=== PATIENT | female | born 1945 | race Caucasian/White ===

== ENCOUNTER 2017-03-04 07:33 | Day surgery (SDC) | payer BC ==
[2017-02-25 11:55] LABS: HEMOGLOBIN 12.7 g/dL (12.0-16.0)
[2017-02-25 12:07] LABS: BUN (BLOOD UREA NITROGEN) 17 MG/DL (6-23); CHLORIDE, SERUM 103 MMOL/L (96-112); CO2 (CARBON DIOXIDE) 30 MMOL/L (24-34); CREATININE 1.05 MG/DL (0.55-1.02); GFR AFRICAN AMERICAN 62 ML/MIN (>=60); GFR NON AFRICAN AMERICAN 54 ML/MIN (>=60); GLUCOSE, SERUM 90 MG/DL (60-99); POTASSIUM, SERUM 3.8 MMOL/L (3.5-5.3); SODIUM, SERUM 142 MMOL/L (135-148)
--- NOTE | ~2017-03-04 | OP ---
Record Of Operation [facility] [address] [place]. [address] NAME: HAJA ESCOBAR : 47 STATUS : [facility]#: [id number] AGE: 71 ADM/REG DATE : 03/04/17 MR#: [id number] REPORT SERV DATE: 03/17/17 DICTATED BY: Candice WHITMORE DATE: 03/17/17 REPORT STATUS : Draft TRANSCRIBED BY: MULU DATE: 03/17/17 DATE OF PROCEDURE: 03/04/2017 PREOPERATIVE DIAGNOSES: 1. 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 2. Lesion of the right medial cheek, uncertain behavior. 3. Lesion of the left lateral cheek, uncertain behavior. 4. Lesion of the right distal nasal dorsum, uncertain behavior. POSTOPERATIVE DIAGNOSES: 1. 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 2. Right medial cheek lesion, epidermal inclusion cyst by frozen section. 3. Left lateral cheek lesion, sent for frozen section, no cancer seen, probable benign nevus. 4. Right distal nasal dorsum lesion, permanent path pending. PROCEDURE: 1. Incisional biopsy right medial cheek lesion with frozen section. 2. Excision of right medial cheek subcutaneous mass (probable epidermal inclusion cyst), with intermediate closure. 3. Excision of basal cell carcinoma of the nasal tip with frozen section. 4. Re-excision of nasal tip basal cell carcinoma, (margins with additional frozen section and dressing of the wound). 5. Shave excision distal nasal dorsum lesion (sent for permanent section). 6. Shave excision of left lateral cheek lesion with frozen section. 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 INDICATIONS: This 71-year-old has a biopsy-proven basal cell carcinoma of the nasal tip. This is at the very tip and center of the nose and this needs to be excised, and she understands the difficulty in reconstruction, and we discussed possibly and probably allowing this to heal by secondary intention. Direct closure and skin graft can be done at a later date if we have an undesirable result with secondary healing. The tip is too narrow for direct closure in my opinion. She also has a lesion of her right medial cheek that is suspicious for basal cell. There is a lesion of her left lateral cheek and right distal nasal dorsum that need further examination to rule out atypia. She understands and wishes to proceed. Proper consent obtained. No guarantees expressed. DESCRIPTION OF PROCEDURE: She was taken into the operating room and given general oral endotracheal anesthesia in the supine position. Her entire face was prepped with Hibiclens and saline followed by isopropyl alcohol. In the preoperative area, she had masquerade on and was instructed to remove it. She was not able to remove at all, and I was concerned Record Of Operation [address] [address] NAME: HAJA ESCOBAR : 47 STATUS : [facility] PAT#: [id number] AGE: 71 ADM/REG DATE : 03/04/17 MR#: [id number] REPORT SERV DATE: 03/17/17 DICTATED BY: Candice WHITMORE DATE: 03/17/17 REPORT STATUS : Draft TRANSCRIBED BY: MULU DATE: 03/17/17 that this would get into her wounds. The eyelids were closed and the entire eyelid area were covered with sterile Tegaderm. Sterile drapes had been applied. The right cheek was first approached and the periphery of this lesion was marked out and then a long fusiform ellipse was marked out around this paralleling the medial labial crease, anticipating this probably being a basal cell. The area was injected with 1% Xylocaine with 1:100,000 epinephrine. An incisional biopsy in the center of this lesion in the direction of the fusiform ellipse axis was made and sent for frozen section. In the meantime, the nasal tip was marked out for excision and then margins around this. The nose was injected with 0.5% Marcaine with 1:200,000 epinephrine and 1% Xylocaine with 1:100,000 epinephrine. The right cheek lesion returned showing this to be a cyst most likely. The #11 blade was used to incise the nasal tip to remove the tumor according to the markings. Before the tumor was removed from the tumor bed, a suture was placed at the 12 o'clock position. The pathologist was brought into the room for orientation and to perform frozen sections. While the frozen sections were being performed on the nose, a small fusiform elliptical incision and excision was made over the biopsy proven cyst and a small 1.6 cm fusiform thin full-thickness skin was removed, but left attached to the cyst. The cyst was dissected in the subcutaneous plane just above the level of the muscle and removed with the #15 blade. Closure was accomplished with 6-0 Vicryl deep and Dermabond on the skin. Frozen sections returned on the nose showing margins still involved and additional margins were obtained. Frozen sections returned showing those margins to be clear. It was felt best to dress this wound and allow it to heal by secondary intention since it was approximately 7 mm in diameter. Direct closure would result in overly pinched in nose. The wound was closed with a dressing with antibiotic ointment and Telfa and the Telfa was sutured with 6-0 Prolene over and over to secure it followed by Mastisol and paper tape. There was a lesion on the right distal nasal dorsum which was shaved, excised, and sent for permanent pathology. The base was lightly cauterized. The lesion on the left lateral cheek was shaved, excised, and the base cauterized. Mastisol and paper tape were applied to both of these shave excisions. The right lateral cheek lesion proved to be noncancerous, probable nevus by frozen section. She was awakened, extubated, and taken recovery room in good condition having tolerated the procedure well. Home going instructions included keeping the tape dry and intact and rechecking in the office in one week approximately. L/MANUELL Record Of Operation [address] [address] NAME: HAJA ESCOBAR : 47 STATUS : [facility] PAT#: [id number] AGE: 71 ADM/REG DATE : 03/04/17 MR#: [id number] REPORT SERV DATE: 03/17/17 DICTATED BY: Candice WHITMORE DATE: 03/17/17 REPORT STATUS : Draft TRANSCRIBED BY: MULU DATE: 03/17/17 Candice Whitmore M.D. / [id number] CC: Jacqueline Guardado M.D.
[~2017-03-04 07:33] MED LIST: ADVIL PO; BEN25 PO; CALTRA600D PO; HYDROCHLOROT25 MG PO; MULTIVIT/MIN PO; TAMOXIFEN20 M1 PO; [UNRECOGNIZED DRUG - OTHER] PO
== END 2017-03-04 15:40 | disposition home or self-care (01) ==
LOC: SDC 07:33
PROVIDERS: Specialist
PROC: 0JB10ZZ Excision of Face Subcutaneous Tissue and Fascia, Open Approach (ICD-10-PCS; 2017-03-04)
PROC: 0HB1XZZ Excision of Face Skin, External Approach (ICD-10-PCS; 2017-03-04)
PROC: 0HB1XZZ Excision of Face Skin, External Approach (ICD-10-PCS; 2017-03-04)
PROC: 0JB10ZZ Excision of Face Subcutaneous Tissue and Fascia, Open Approach (ICD-10-PCS; principal; 2017-03-04 08:45)
DX: C44.311 Basal cell carcinoma of skin of nose (principal); L72.0 Epidermal cyst; I10 Essential (primary) hypertension; D23.9 Other benign neoplasm of skin, unspecified; Z88.5 Allergy status to narcotic agent; Z88.8 Allergy status to other drugs, medicaments and biological substances; Z77.22 Contact with and (suspected) exposure to environmental tobacco smoke (acute) (chronic); Z85.3 Personal history of malignant neoplasm of breast; Z90.710 Acquired absence of both cervix and uterus; Z79.899 Other long term (current) drug therapy; Z98.890 Other specified postprocedural states
CPT/HCPCS: 80048; 85014; 85018; 88304; 88305; 88331; 93005; A9270-GY; J0690; J1200; J2250; J2405; J2710; J3010